=== PATIENT | male | born 2000 | race Caucasian/White ===

== ENCOUNTER 2021-11-21 19:42 | Emergency (ER) | payer OTHER ==
[~2021-11-21] VITALS: Ht 172.7 cm; Wt 86.2 kg
[2021-11-21 19:58] VITALS: BP 146/85
--- NOTE | 2021-11-21 20:04 | NUR ---
PT TO LOBBY TO A/W EVALUATION
--- NOTE | 2021-11-21 20:41 | NUR ---
CALLED BY , NO ANSWER.
[2021-11-21] MEDS ORDERED: BPM/118S31 PO (20:57)
[2021-11-21 21:20] VITALS: BP 146/85
--- NOTE | 2021-11-21 21:20 | NUR ---
Patient discharged with v/s stable. Written and verbal after care instructions given and explained. Patient alert, oriented and verbalized understanding of instructions. Ambulatory with steady gait. All questions addressed prior to discharge. ID band removed. Patient advised to follow up with PMD. Rx of BROMFED DM given. Patient educated on indication of medication including possible reaction and side effects. Opportunity to ask questions provided and answered.
== END 2021-11-21 21:20 | disposition home or self-care (01) ==
LOC: MED 19:42
DX: J40 Bronchitis, not specified as acute or chronic (principal); Z79.899 Other long term (current) drug therapy
CPT/HCPCS: 71046; 99283